=== PATIENT | female | born 1980 | race Caucasian/White ===

== ENCOUNTER → 2022-07-17 | Outpatient (CLI) | payer OTHER ==
--- NOTE | 2022-07-17 15:06 | XR ---
EXAM TYPE: LUMBAR SPINE X RAY SERIES COMPARISON: NONE HISTORY: Pain TECHNIQUE: Narvaez views are submitted. FINDINGS: Alignment is anatomic. The pedicles are intact. The transverse processes are intact. There is no v ascular calcification. Hypertrophic changes are seen anteriorly. There is degenerative disc disease a t the thoracolumbar junction. IMPRESSION: 1. Multilevel mild degenerative disc disease. Consider follow-up MRI.
== END | disposition home or self-care (01) ==
LOC: RADXRMAIN 14:34
PROVIDERS: ATTEND Family Medicine
DX: M51.36 Other intervertebral disc degeneration, lumbar region (principal)
CPT/HCPCS: 72100

== ENCOUNTER → 2022-07-25 | Outpatient (CLI) | payer OTHER ==
--- NOTE | 2022-07-25 19:25 | CT ---
EXAMINATION TYPE: CT lumbar spine wo con CT DLP: 1381.5 mGycm, Automated exposure control for dose reduction was used. DATE OF EXAM: 07/25/2022 7:08 PM COMPARISON: Radiograph 07/17/2022. CLINICAL INDICATION:Female, 42 years old with history of M54.5 Lumbago, Low back pain TECHNIQUE: Multiple axial images were obtained from the midportion of T11 through the sacroiliac adriana nts. Soft tissue and bone windows in coronal and sagittal planes were obtained and reviewed. FINDINGS: Alignment: There are 5 lumbar type vertebral bodies within normal alignment. Bone: No evidence of fracture is identified. There is minimal multilevel disc degeneration changes w ith osteophyte formation. Discs: T12-L1: No spinal canal or neural foraminal stenosis is identified. L1-L2: No spinal canal or neural foraminal stenosis is identified. L2-L3: No spinal canal or neural foraminal stenosis is identified. L3-L4: No spinal canal or neural foraminal stenosis is identified. L4-L5: Central disc protrusion with narrowing of the ventral subarachnoid space.. The neural foramen are patent. L5-S1: Rounded posteriorly, no spinal canal or neural foraminal stenosis is identified. Other: Atherosclerosis of the arterial vasculature. IMPRESSION: 1. No evidence of fracture of the lumbar spine. 2. Central disc herniation suggested at L4-L5 with narrowing the ventral subarachnoid space.
== END | disposition home or self-care (01) ==
LOC: RADCTMAIN 18:32
PROVIDERS: ATTEND Family Medicine
DX: M51.36 Other intervertebral disc degeneration, lumbar region (principal)
CPT/HCPCS: 72131